=== PATIENT | female | born 1985 | race Caucasian/White ===

== ENCOUNTER 2020-08-04 07:03 | Outpatient (REF) | payer BC, SELFPAY ==
[2020-08-04 12:26] LABS: TSH reflex Free T4 1.87 uIU/mL (0.32-4.0)
[2020-08-04 12:45] LABS: Alanine Aminotransferase 32 U/L (0-31); Alkaline Phosphatase 63 U/L (39-117); Anion Gap 13 (12-20); Aspartate Amino Transferase 22 U/L (5-31); Bilirubin Total 0.5 mg/dL (0.0-1.0); Blood Urea Nitrogen 14 mg/dL (9-16); Carbon Dioxide 24 mmol/L (22-29); Chloride 106 mmol/L (96-108); Cholesterol 160 mg/dL; Estimated Glomerular Filt Rate > 60; Glucose Fasting 88 mg/dL (60-99); HDL Cholesterol 41 mg/dL; LDL Cholesterol Calculated 97 mg/dl; Potassium 4.6 mmol/L (3.3-5.1); Sodium 138 mmol/L (135-145); Total Protein 6.6 g/dL (6.5-8.0); Triglycerides 111 mg/dL
[2020-08-06 20:53] LABS: Follicle Stimulating Hormone 4.6 mIU/mL; Lutenizing Hormone 8.6 mIU/mL; Prolactin 26.8 ng/mL
== END 2020-08-04 07:04 | disposition home or self-care (01) ==
LOC: HO.WFDLDS 07:03
PROVIDERS: Visit Provider Family Medicine
DX: Z00.00 Encounter for general adult medical examination without abnormal findings (principal)
CPT/HCPCS: 36415; 80053; 80061; 83001; 83002; 84146; 84443